=== PATIENT | female | born 1940 | race Caucasian/White ===

== ENCOUNTER 2017-11-17 20:44 | Emergency (ER) | payer MEDICARE ==
[2017-11-17 21:22] VITALS: BP 124/75
[2017-11-17] MEDS ORDERED: Acyclovir* 200 MG CAP PO ONE (21:44)
--- NOTE | 2017-11-17 22:02 | UC ---
Lower Extremity/Ankle HPI - HPI Summary HPI Summary: Pt c/o gradual onset of pain in left hip that began 3 days ago. Pain has worsened and now radiates down left anterior leg. Pt has 5 erythematous, tender areas measuring between 1- 3 cm in diameter. in left medial aspect of lower leg. - History of Current Complaint Chief Complaint: UCLowerExtremity Stated Complaint: left leg pain Time Seen by Provider: 11/17/17 21:22 Hx Obtained From: Patient ?: No Onset/Duration: Gradual Onset, Lasting Days, Still Present, Worse Since - onset Severity Initially: Mild Severity Currently: Moderate Pain Intensity: 10 Pain Scale Used: 0-10 Numeric Aggravating Factor(s): Other - touch Alleviating Factor(s): Nothing Able to Bear Weight: Yes - Risk Factors Gout Risk Factors: Age Over 40 DVT Risk Factors: Recent Period Of Bedrest Septic Arthritis Risk Factor: Extremes of Age - Allergies/Home Medications Allergies/Adverse Reactions: Allergies Allergy/AdvReac Type Severity Reaction Status Date / Time Codeine Allergy Severe tongue Verified 11/17/17 21:22 swelling, rash Pregabalin [From Lyrica] Allergy Severe confusion Verified 11/17/17 21:22 Tolterodine [From Detrol] Allergy Severe Maple like Verified 11/17/17 21:22 bladder infection TIRSO Inhibitors Allergy Mild cough, Verified 11/17/17 21:22 chest wall pain Home Medications: Home Medications Furosemide TAB* [Lasix TAB*] 20 mg PO DAILY 11/17/17 [History Confirmed 11/17/17 ] Omeprazole CAP* [Prilosec CAP* 20 MG] 20 mg PO DAILY 11/17/17 [History Confirmed 11/17/17] Simvastatin (NF) [Zocor (NF)] 1 tab DAILY 11/17/17 [History Confirmed 11/17/17] Tetracycline HCl 500 mg PO QID 11/17/17 [History Confirmed 11/17/17] busPIRone TAB* [Buspar TAB*] 1 tab TID 11/17/17 [History Confirmed 11/17/17] hydrOXYzine HCL TAB* [Atarax 10 MG TAB*] 2 tab TID PRN 11/17/17 [History Confirmed 11/17/17] metroNIDAZOLE TAB* [Flagyl 250 mg TAB*] 250 mg PO QID 11/17/17 [History Confirmed 11/17/17] PMH/Surg Hx/FS Hx/Imm Hx Previously Healthy: No Cardiovascular History: Hypertension, Congestive Heart Failure - Surgical History Surgical History: Yes Surgery Procedure, Year, and Place: 2000 left breast lump benign, , hysterectomy,appendectomy - Family History Known Family History: Positive: Cardiac Disease - Social History Occupation: Retired Lives: With Family Alcohol Use: None Substance Use Type: None Smoking Status (MU): Light Every Day Tobacco Smoker Type: Cigarettes Amount Used/How Often: 1/2 ppd Have You Smoked in the Last Year: Yes Review of Systems Constitutional: Negative Skin: Other - tender rash Eyes: Negative ENT: Negative Respiratory: Negative Cardiovascular: Negative Gastrointestinal: Negative Genitourinary: Negative Motor: Negative Neurovascular: Negative Musculoskeletal: Myalgia Neurological: Negative Psychological: Negative Is Patient Immunocompromised?: No All Other Systems Reviewed And Are Negative: Yes Physical Exam Triage Information Reviewed: Yes Appearance: Ill-Appearing Vital Signs: Initial Vital Signs Temp 98.9 F 11/17/17 21:12 Pulse 91 11/17/17 21:12 Resp 18 11/17/17 21:12 BP 124/75 11/17/17 21:12 Pulse Ox 97 11/17/17 21:12 Eye Exam: Normal ENT Exam: Normal Neck exam: Normal Respiratory Exam: Normal Cardiovascular Exam: Normal Cardiovascular: Positive: RRR Musculoskeletal Exam: Other Musculoskeletal: Positive: Other: - left leg pain that begin at left lateral hip an dradiates to medial aspect of lower leg just above medial malleolous. Neurological Exam: Normal Psychological Exam: Normal Skin Exam: Other - 5 erythematous, tender areas left medial aspect of lower extremity, measuring between 1-3 cm, tiny fluid filled vessicles , intact Lower Extremity Course/Dx - Differential Dx/Diagnosis Differential Diagnosis/HQI/PQRI: DVT, Infection, Phlebitis Provider Diagnoses: Shingles left lower extremity Discharge - Discharge Plan Condition: Stable Disposition: HOME Prescriptions: Acyclovir* [Zovirax 400 MG TAB*] 800 mg PO QID #56 tab Patient Education Materials: [employer] (ED) Referrals: Marcelina Singh MD [Primary Care Provider] - If Needed
== END 2017-11-17 21:53 | disposition home or self-care (01) ==
LOC: UCCORT 20:44
DX: B02.9 Zoster without complications (principal); I10 Essential (primary) hypertension; I50.9 Heart failure, unspecified; F17.210 Nicotine dependence, cigarettes, uncomplicated
CPT/HCPCS: 99211; A9270-GY; G0463